=== PATIENT | male | born 1990 | race Caucasian/White ===

== ENCOUNTER → 2019-11-26 12:13 | Outpatient (CLI) | payer OTHER, SELFPAY ==
[2019-11-26 14:13] LABS: Liquefaction Semen YES (YES); Sperm Count 95 x10^6/mL (20-150); Sperm Morphology 50 %ABNORM (0-30); Sperm Motility 30% % Motile; Volume Semen 5.5 (1.0-5.0)
== END ==
PROVIDERS: Referring Provider Specialist; Visit Provider Specialist
DX: N46.9 Male infertility, unspecified (principal)
CPT/HCPCS: 89320